=== PATIENT | male | born 1985 | race Hispanic/Latino ===

== ENCOUNTER 2018-06-08 15:16 | Emergency (ER) | payer BC, SELFPAY ==
[2018-06-08 15:19] VITALS: BP 135/92; PULSE 95; RESP 14; TEMP 37.2; O2SAT 95
--- NOTE | 2018-06-08 15:32 | ED.URI ---
HPI - URI/Sore Throat <Ca Galvan PA-C - Last Filed: 06/08/18 16:33> General Chief Complaint: Upper Respiratory Symptoms Stated Complaint: FEVER HEADACHE Time Seen by Provider: 06/08/18 15:32 Source: patient Mode of arrival: ambulatory Limitations: no limitations History of Present Illness HPI Narrative: this 33-year-old male states that he has been sick since last night. He states he had onset of cough yesterday and cough so hard that he vomited up some phlegm twice last night. Cough has persisted. He states last night he had abrupt onset of severe fatigue and feeling achy all over. He had fever at home today up to 103.5, and states that when his fever was up he could not remember what his told him and was confused. That is better after she gave him ibuprofen fever came down ( she states Tylenol did not help). He states he has mild sore throat and a little bit of earache. He is not having chest pain or shortness of breath, thinks he might have had a little bit of wheeze briefly earlier, none now. He denies any new rashes. He denies any recent travel or specific exposures though his apparently has had sick coworkers. He is a smoker, no history of lung disease or asthma Related Data Previous Rx's Medication Instructions Recorded ibuprofen 800 mg PO Q8H PRN #30 tab 06/08/18 oseltamivir [Tamiflu] 75 mg PO BID 5 Days #10 cap 06/08/18 promethazine-codeine 5 ml PO Q4-6H PRN #118 ml 06/08/18 Allergies Allergy/AdvReac Type Severity Reaction Status Date / Time No Known Drug Allergies Allergy Verified 06/08/18 15:22 Review of Systems <Ca Galvan PA-C - Last Filed: 06/08/18 16:33> Review of Systems ROS Unobtainable: All systems reviewed & are unremarkable except as noted in HPI and below PFSH <TAI Tenorio Last Filed: 06/08/18 16:33> Medical History Healthy adult male (Chronic) No pertinent family history (Chronic) Surgical History No pertinent past surgical history (Chronic) Social History Smoking Status: Current every day smoker Social History Smoking Status: Current every day smoker Exam <TAI Tenorio Last Filed: 06/08/18 16:33> Narrative Exam Narrative: GENERAL APPEARANCE: Patient sitting comfortably, in no distress. HEAD: No sinus TTP. EYES: PERRL, EOMI. EARS: Normal auditory canals, TMS intact with normal light reflexes. ORAL CAVITY: Normal oropharynx. THROAT: Clear. NECK/THYROID: Neck supple, full range of motion, few anterior cervical nodes LUNGS: Clear to auscultation bilaterally, occasional hoarse cough on exam. HEART: RRR without murmur, nl S1, S2, no S3 or S4. DERMATOLOGIC: No exanthem Initial Vital Signs Initial Vital Signs: Vital Signs Temperature 98.9 F 06/08/18 15:19 Pulse Rate 95 H 06/08/18 15:19 Respiratory Rate 14 06/08/18 15:19 Blood Pressure 135/92 H 06/08/18 15:19 Pulse Oximetry 95 06/08/18 15:19 <Soto Mohan MD - Last Filed: 06/09/18 07:58> Initial Vital Signs Initial Vital Signs: Vital Signs Temperature 98.9 F 06/08/18 15:19 Pulse Rate 95 H 06/08/18 15:19 Respiratory Rate 14 06/08/18 15:19 Blood Pressure 135/92 H 06/08/18 15:19 Pulse Oximetry 95 06/08/18 15:19 Course <Ca Galvan PA-C - Last Filed: 06/08/18 16:33> Orders Ordered: ED Orders 06/08/18 15:20 FLU A and B [Influenza A and B by PCR Rapid] Stat Vital Signs - 8 hr 06/08/18 15:19 06/08/18 16:19 Temperature 98.9 F Pulse Rate 95 H 87 Respiratory Rate 14 16 Blood Pressure 135/92 H Blood Pressure [Right Arm] 120/78 Pulse Oximetry 95 97 <Soto Mohan MD - Last Filed: 06/09/18 07:58> Orders Ordered: ED Orders 06/08/18 15:20 FLU A and B [Influenza A and B by PCR Rapid] Stat Vital Signs - 8 hr 06/08/18 15:19 06/08/18 16:19 Temperature 98.9 F Pulse Rate 95 H 87 Respiratory Rate 14 16 Blood Pressure 135/92 H Blood Pressure [Right Arm] 120/78 Pulse Oximetry 95 97 [facility] - URI/Sore Throat <Ca Galvan PA-C - Last Filed: 06/08/18 16:33> Lab Data Lab Results 06/08/18 Range/Units 15:20 Influenza A & B (PCR) Positive, type a A (Negative) <Soto Mohan MD - Last Filed: 06/09/18 07:58> Lab Data Lab Results 06/08/18 Range/Units 15:20 Influenza A & B (PCR) Positive, type a A (Negative) Discharge Plan Departure Patient Disposition: Home Clinical Impression: Influenza Discharge Date/Time: 06/08/18 16:24 Interventions: ED Discharge Assessment Last Done: 06/08/18 16:23 Instructions: DI for Influenza -- Adult Activity Restrictions/Additional Instructions: Please see your PCP or return to the emergency department if you have any acutely worsening symptoms as we talked about, i.e. difficulty breathing, high fever not responding to Your ibuprofen and Tylenol. Start the Tamiflu as soon as you pick it up. You can use the cough medicine as needed to help with cough and sleep but do not drive as it may make you sleepy. Stay home and rest until you are feeling better as you can spread this infection to others the respiratory droplet. Prescriptions: New ibuprofen 800 mg tablet 800 mg PO Q8H PRN (Reason: fever or pain) Qty: 30 RF: 0 promethazine-codeine 6.25-10 mg/5 mL syrup 5 ml PO Q4-6H PRN (Reason: cough) Qty: 118 RF: 0 oseltamivir [Tamiflu] 75 mg capsule 75 mg PO BID 5 Days Qty: 10 RF: 0 Referrals: [facility], [place] [Other] <Soto Mohan MD - Last Filed: 06/09/18 07:58> Cosign ED Attending Cosdanielature Attestation: I was present in the ER at the time of this patient's care. I was available for verbal consultation or to evaluate the patient directly if needed. I agree with the assessment and treatment plan.
[2018-06-08 16:19] VITALS: BP 120/78; PULSE 87; RESP 16; O2SAT 97
== END 2018-06-08 16:24 | disposition home or self-care (01) ==
PROVIDERS: Emergency Medicine; Emergency Provider Internal Medicine
DX: J11.1 Influenza due to unidentified influenza virus with other respiratory manifestations (principal)
CPT/HCPCS: 87400; 99282; 99283

== ENCOUNTER 2018-08-13 21:54 | Emergency (ER) | payer BC, SELFPAY ==
[2018-08-13 22:37] VITALS: BP 124/80; PULSE 76; RESP 16; TEMP 36.8; O2SAT 97; BMI 28.7
--- NOTE | 2018-08-13 23:57 | ED.BACK ---
HPI - Back Pain/Injury General Chief Complaint: Abdominal Pain Stated Complaint: KIDNEY OR BACK PAIN Time Seen by Provider: 08/13/18 23:41 Source: patient Mode of arrival: ambulatory Limitations: no limitations History of Present Illness HPI Narrative: Patient is a 33-year-old male who presents with bilateral flank pain off and on for the last 2 months. It is non radiating and no abdominal pain no leg pain no weakness. He has been taking Motrin 800 mg off and on for which does seem to help sometimes but not all the time. 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 He says he uses proper lifting techniques. He has no painful or frequent urination no blood in his urine, no fevers no chills no nausea no vomiting. MD Complaint: back pain Onset (ago): month(s) (2) Related Data Previous Rx's Medication Instructions Recorded ibuprofen 800 mg PO Q8H PRN #30 tab 06/08/18 promethazine-codeine 5 ml PO Q4-6H PRN #118 ml 06/08/18 meloxicam 7.5 mg PO DAILY #14 tab 08/14/18 Allergies Allergy/AdvReac Type Severity Reaction Status Date / Time No Known Drug Allergies Allergy Verified 08/13/18 22:36 Review of Systems Review of Systems ROS Unobtainable: All systems reviewed & are unremarkable except as noted in HPI and below Constitutional Denies chills, Denies fever(s), Denies lethargy and Denies weakness ENT Ears, Nose, Mouth, and Throat: Denies change in voice, Denies neck pain and Denies sore throat Cardiovascular Denies chest pain, Denies irregular heart rhythm, Denies lightheadedness, Denies palpitations, Denies dyspnea, Denies dyspnea on exertion and Denies orthopnea Respiratory Denies cough, Denies dyspnea, Denies dyspnea on exertion and Denies wheezing Genitourinary Reports flank pain Musculoskeletal Denies neck pain Integumentary/Breasts Denies pruritus, Denies erythema, Denies rash and Denies wounds Neurologic Denies weakness Endocrine Denies palpitations Allergic/Immunologic Denies wheezing PFSH Medical History Healthy adult male (Chronic) No pertinent family history (Chronic) Surgical History No pertinent past surgical history (Chronic) Social History Smoking Status: Former smoker Social History Smoking Status: Former smoker Exam Initial Vital Signs Initial Vital Signs: Vital Signs Temperature 98.2 F 08/13/18 22:37 Pulse Rate 76 08/13/18 22:37 Respiratory Rate 16 08/13/18 22:37 Blood Pressure 124/80 08/13/18 22:37 Pulse Oximetry 97 08/13/18 22:37 GENERAL: Sleeping easily arousable able to sit up in bed without difficulty HEENT: Head atraumatic,EOMI, pupils reactive, face symmetric, CARDIOVASCULAR: Regular rate and rhythm without murmurs, rubs or gallops. RESPIRATORY: Breath sounds equal bilaterally, no wheezes rales or rhonchi. ABDOMEN: Soft, nontender. Normoactive bowel sounds all 4 quadrants. No guarding or rebound. BACK: No midline tenderness, bilateral lower lumbar pain EXTREMITIES: Normal range of motion, no clubbing or edema. Neurovascularly intact NEUROLOGICAL: Alert and oriented x4.Normal gait and speech. Cranial nerves II through XII grossly intact. sensation lower extremities equal SKIN: Warm, dry, no laceration, no petechiae, no rashes or lesions. Course Orders Ordered: Discontinued Medications Ketorolac Tromethamine (Toradol) 60 mg IM NOW ONE Stop: 08/14/18 00:05 Last Admin: 08/14/18 00:35 Dose: 60 mg Vital Signs - 8 hr 08/13/18 22:37 08/14/18 01:21 Temperature 98.2 F Pulse Rate 76 57 L Respiratory Rate 16 16 Blood Pressure 124/80 126/83 Pulse Oximetry 97 97 MDM - Back Pain/Injury Lab Data Urine Dip Bedside Urine Glucose Negative Bedside Urine Bilirubin - Negative Bedside Urine Ketone - Negative Urine Specific Decker 1.025 Bedside Urine Occult Blood - Negative Bedside Urine pH 6.0 Bedside Urine Protein - Negative Bedside Urine Urobilinogen +/- 1mg Bedside Urine Nitrite - Negative Bedside Urine Leukocytes - Negative Esterase MDM Narrative Medical decision making narrative: Patient has been having ongoing bilateral pain off and on for last 2 months. 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 He states he is using proper lifting techniques. He has no midline tenderness no loss of urine or bowel numbness tingling or weakness in his extremities. At this time no indication for imaging. He received Toradol is sleeping again. Abdomen is soft nontender I do not believe this to be kidney stone. Urine is negative. Patient is given meloxicam to take instead of ibuprofen. Recommend following up with a new PCP who he is scheduled to see in the next few weeks possible physical therapy and imaging at if symptoms worsen Discharge Plan Departure Patient Disposition: Home Clinical Impression: Back pain Qualifiers: Back pain location: low back pain Chronicity: chronic Back pain laterality: bilateral Sciatica presence: without sciatica Qualified Code(s): M54.5 - Low back pain Discharge Date/Time: 08/14/18 01:22 Interventions: ED Discharge Assessment Last Done: 08/14/18 01:21 Instructions: Managing Chronic Low Back Pain, Low Back Pain Activity Restrictions/Additional Instructions: *You have been diagnosed with chronic low back pain *What to do: At this time talk with her PCP in regards to physical therapy. Light stretching is encouraged. *Continue to take medications as directed--> SENT TO [facility] IN [place] Mobic 7.5 mg once daily do not combine with ibuprofen, Aleve, Advil, naproxen or other NSAIDS *Follow up with your primary care provider in 2-3 days *Return to ER if you should have numbness tingling in the legs weakness in legs worsening pain, fever or any new, worsening or concerning symptoms Prescriptions: New meloxicam 7.5 mg tablet 7.5 mg PO DAILY Qty: 14 RF: 0 No Action ibuprofen 800 mg tablet 800 mg PO Q8H PRN (Reason: fever or pain) Qty: 30 RF: 0 promethazine-codeine 6.25-10 mg/5 mL syrup 5 ml PO Q4-6H PRN (Reason: cough) Qty: 118 RF: 0
[2018-08-14] MEDS: KETOROLAC 60 MG/2 ML VIAL IM (00:35)
[2018-08-14 01:21] VITALS: BP 126/83; PULSE 57; RESP 16; O2SAT 97
== END 2018-08-14 01:22 | disposition home or self-care (01) ==
PROVIDERS: Emergency Provider Emergency Medicine
DX: M54.5 Low back pain (principal); R10.9 Unspecified abdominal pain
CPT/HCPCS: 81003; 96372; 99282; 99283; J1885